=== PATIENT | male | born 1945 | race Caucasian/White ===

== ENCOUNTER 2017-03-05 17:12 | Emergency (ER) | payer MEDICARE ==
[2017-03-05 17:38] LABS: BASO % 0.5 % (0.2-1.2); EOS # 0.2 10_X3_uL (0.0-0.5); EOS % 2.3 % (0.8-7.0); GRAN # 3.7 10_X3_uL (1.8-5.4); GRAN % 57.6 % (34.0-67.9); HEMATOCRIT 40.3 % (40-51); HEMOGLOBIN 13.7 g/dL (13.7-17.5); LYMPH # 1.3 10_X3_uL (1.3-3.6); LYMPH % 20.4 % (21.8-53.1); MEAN CORPUSCULAR HEMOGLOBIN 32.9 pg (27.0-33.0); MEAN CORPUSCULAR VOLUME 96.9 fL (79-92); MEAN PLATELET VOLUME 10.1 fl (7.5-11.5); MONO # 1.2 10_X3_uL (0.3-0.8); MONO % 19.2 % (5.3-12.2); PLATELET COUNT 180 x10_3/uL (163-337); RED BLOOD COUNT 4.16 x10_6/uL (4.6-6.1); RED CELL DISTRIBUTION WIDTH 14.9 % (11.6-14.4); WHITE BLOOD COUNT 6.5 x10_3/uL (4.2-9.1)
== END 2017-03-05 20:30 | disposition home or self-care (01) ==
LOC: ER 17:12
PROVIDERS: General Practice
DX: S00.81XA Abrasion of other part of head, initial encounter (principal); W19.XXXA Unspecified fall, initial encounter; G31.9 Degenerative disease of nervous system, unspecified; J32.9 Chronic sinusitis, unspecified; F17.210 Nicotine dependence, cigarettes, uncomplicated; Z79.899 Other long term (current) drug therapy
CPT/HCPCS: 36415; 70450; 70486; 85025; 99070; 99283-25; 99284